=== PATIENT | female | born 1985 | race Caucasian/White ===

== ENCOUNTER 2017-11-22 17:44 | Emergency (ER) | payer OTHER, BC ==
[~2017-11-22] VITALS: Ht 157.5 cm; Wt 63.3 kg
[~2017-11-22 17:44] MED LIST: ~No Medications
[2017-11-22] MEDS ORDERED: MOTRIN600 MG PO (19:09)
[2017-11-22] MEDS ORDERED: BACLOFEN10 MG PO (19:09)
[2017-11-22] MEDS ORDERED: LIDODERM 5% P1 PATCH TD (19:09)
[2017-11-22] MEDS ORDERED: VOLTAREN 1% GE100 GM TP (19:09)
[2017-11-22 19:41] VITALS: BP 108/81
== END 2017-11-22 19:42 | disposition home or self-care (01) ==
LOC: EME 17:44 → RME 17:44
DX: S00.83XA Contusion of other part of head, initial encounter (principal); S10.91XA Abrasion of unspecified part of neck, initial encounter; S50.811A Abrasion of right forearm, initial encounter; S50.812A Abrasion of left forearm, initial encounter; V49.40XA Driver injured in collision with unspecified motor vehicles in traffic accident, initial encounter; Y92.410 Unspecified street and highway as the place of occurrence of the external cause
CPT/HCPCS: 70450; 72125